=== PATIENT | male | born 1955 | race Caucasian/White ===

== ENCOUNTER 2019-05-07 07:52 | Emergency (ER) | payer BC ==
[~2019-05-07] VITALS: Ht 190.5 cm; Wt 120.2 kg
[~2019-05-07 07:52] MED LIST: APAP650 PO; CLARITIN10 MG PO; HYDROCODONE-APA1 TA1 PO; LISINOPRIL20 MG PO; LOTREL 10-20 M1 EACH PO; LOTREL 5-10 MG1 EACH PO; MUCINEX600 MG PO; MULTIVITAMINS1 EAC7 PO; NASACORT10.8 ML NS; NORVASC10 MG PO; PERCOCET 5-3251 EACH PO; PERCOCET PO
[2019-05-07] MEDS ORDERED: LOPRESSOR25 PO (07:59)
[2019-05-07] MEDS ORDERED: NAPROSYN500 MG PO (08:53)
[2019-05-07] MEDS ORDERED: TRAMADOL 50 MG50 MG PO (08:53)
[2019-05-07 09:05] VITALS: BP 109/65
== END 2019-05-07 09:07 | disposition home or self-care (01) ==
LOC: ER 07:52
DX: S83.8X1A Sprain of other specified parts of right knee, initial encounter (principal); I10 Essential (primary) hypertension; G47.30 Sleep apnea, unspecified; F17.210 Nicotine dependence, cigarettes, uncomplicated; Z98.890 Other specified postprocedural states; W01.0XXA Fall on same level from slipping, tripping and stumbling without subsequent striking against object, initial encounter; Y93.89 Activity, other specified; Y92.89 Other specified places as the place of occurrence of the external cause; Y99.8 Other external cause status